=== PATIENT | male | born 2000 | race Caucasian/White ===

== ENCOUNTER 2023-06-07 13:14 | Emergency (ER) | payer OTHER, SELFPAY ==
[2023-06-07 13:17] VITALS: BP 141/94; PULSE 90; RESP 16; TEMP 36.6; O2SAT 99; BMI 30.8
--- NOTE | 2023-06-07 13:21 | ED.WOUNDLAC1 ---
HPI - Wound/Laceration General Chief Complaint: Wound/Laceration Stated Complaint: LACERATION LEFT RING FINGER Time Seen by Provider: 06/07/23 13:15 History of Present Illness HPI narrative: 23-year-old male presents for laceration to his left ring finger. This was sustained at work with a sharp knife. There was some bleeding which was controlled with pressure. Last tetanus shot was more than ten years ago he believes. No other injury was sustained. Related Data Home Medications Medication Instructions Recorded Confirmed No Known Home Medications 06/07/23 06/07/23 Allergies Allergy/AdvReac Type Severity Reaction Status Date / Time No Known Drug Allergies Allergy Verified 06/07/23 13:17 Review of Systems ROS Narrative A ten point review of systems is negative except as noted above. PFSH PFSH Social History Smoking status: Never smoker Exam Narrative Exam Narrative: Nurses note and vital signs reviewed and patient is not hypoxic. General: The patient appears well and in no apparent distress. Patient is resting comfortably on cart. Skin: Warm, dry, no pallor noted. There is no rash noted. Head: Normocephalic, atraumatic Eye: Normal conjunctiva, no drainage Ears, Nose, Mouth, and Throat: oral mucosa is moist. Nares patent. Cardiovascular: Regular Rate and Rhythm Respiratory: Patient is in no distress, no accessory muscle use Back: non-tender GI: nontender Musculoskeletal: left ring finger distally has 1 cm laceration with a small amount of nonpulsatile bleeding easily controlled with pressure. Nail and nailbed are unaffected. Neurological: A&O, normal speech Psychiatric: Cooperative Constitutional Vital Signs, click to edit/add: Last Vital Signs Temp 97.9 F 06/07/23 13:17 Pulse 90 06/07/23 13:17 Resp 16 06/07/23 13:17 BP 141/94 H 06/07/23 13:17 Pulse Ox 99 06/07/23 13:17 O2 Del Method Room Air 06/07/23 13:17 Course Vital Signs Vital signs: Vital Signs Temperature 97.9 F 06/07/23 13:17 Pulse Rate 90 06/07/23 13:17 Respiratory Rate 16 06/07/23 13:17 Blood Pressure 141/94 H 06/07/23 13:17 Pulse Oximetry 99 06/07/23 13:17 Oxygen Delivery Method Room Air 12/23/23 13:17 Temperature 97.9 F 06/07/23 13:17 Pulse Rate 90 06/07/23 13:17 Respiratory Rate 16 06/07/23 13:17 Blood Pressure 141/94 H 06/07/23 13:17 Pulse Oximetry 99 06/07/23 13:17 Oxygen Delivery Method Room Air 06/07/23 13:17 MDM - Wound/Laceration MDM Narrative Medical decision making narrative: wound has been closed, sutures are to be removed in 7-8 days. Tubegauz dressing applied. Tetanus updated today. Treeatment diagnosis and follow-up were discussed with the patient. Differential Diagnosis Differential diagnosis: Likely laceration and avulsion of skin Discharge Plan Discharge Chief Complaint: Wound/Laceration Clinical Impression: Laceration Patient Disposition: Home, Self-Care Time of Disposition Decision: 13:51 Prescriptions / Home Meds: No Action No Known Home Medications Instructions: Finger Laceration (ED) Additional Instructions: sutures to be removed in a week to ten days. Stand Alone Forms: Portal Instructions Referrals: JESIKA WAGNER [Primary Care Provider] - 1 week Procedures ED Procedure Instructions Procedures Procedures: the following procedure was performed by me. Finger block applied with one percent lidocaine without epinephrine resulting in complete skin anesthesia. The area was prepped with Betadine ?3 and draped sterilely and explored for foreign bodies in them were found. The wound was then closed with two 5-0 Ethilon sutures resulting in good skin reapproximation and no complications. He tolerated the procedure well.
[2023-06-07] MEDS: ADACEL DIPH,PERTUSS(ACELL),TET VAC/PF 0.5 ML ADULT SYRINGE IM (13:59)
[2023-06-07] MEDS: LIDOCAINE HCL 1% 100 MG/10 ML MDV INJ (13:59)
[2023-06-07 14:04] VITALS: BP 138/88; PULSE 89; RESP 18; O2SAT 98
== END 2023-06-07 14:36 | disposition home or self-care (01) ==
PROVIDERS: Emergency Provider Emergency Medicine; PCP Nurse Practitioner Family
DX: S61.215A Laceration without foreign body of left ring finger without damage to nail, initial encounter (principal); Z23 Encounter for immunization; W26.0XXA Contact with knife, initial encounter
CPT/HCPCS: 12001; 90471; 90715; 99284

== ENCOUNTER 2024-04-27 06:05 | Emergency (ER) | payer OTHER, SELFPAY ==
--- OUTSIDE RECORDS SUMMARY | 2024-04-27 06:09 | XMS_ITS | CCD ---
Author Organization [facility] Care Team Providers Care Hearing Aid Dispenser Name Role Phone PAY, DR RIBERA Attending Unavailable STACI, DR BRADFORD Beltran Consulting Unavailable PAY, DR RIBERA Admitting Unavailable JESIKA KEVIN Primary Care Unavailable PAY, DR RIBERA Consulting Unavailable JESIKA KEVIN Attending Unavailable JESIKA KEVIN Consulting Unavailable [facility], DR LAM Primary Care Unavailable JESIKA KEVIN Admitting Unavailable JESIKA KEVIN Attending Unavailable JESIKA KEVIN Consulting Unavailable HERBERTH, JESIKA Primary Care Unavailable HERBERTH, JESIKA Admitting Unavailable Ila Hebert Unavailable Medications Current Medications Medication Drug Class(es) Dates Sig (Normalized) Sig (Original) ondansetron 4 mg oral tablet (1 source) Serotonin-3 Receptor Antagonist Start: 03-19-2021 take 1 tablet by mouth every eight hours as needed Zofran ODT 4 MG 1 tablet on the tongue and allow to dissolve Orally every 8 hrs as needed for 4 days Mar, Active Problems Active Problems Problem Classification Problem Date Documented Date Episodic/Chronic Conduction disorders (1 source) Atrioventricular block, first degree; Translations: [ATRIOVENTRICULAR BLOCK FIRST DEGREE] Onset: 07-10-2021 Chronic Headache; including migraine (1 source) Headache; including migraine; Translations: [HEADACHE UNSPECIFIED] Onset: 03-24-2021 Other upper respiratory disease (1 source) Epistaxis; Translations: [EPISTAXIS] Onset: 07-10-2021 Episodic Syncope (4 sources) Syncope and collapse; Translations: [SYNCOPE AND COLLAPSE] Onset: 07-06-2021 Episodic Unclassified (3 sources) CONTACT W/AND (SUSP) EXPOS COVID-19; Translations: [CONTACT W/AND (SUSP) EXPOS COVID-19] Onset: 03-24-2021 Past or Other Problems Problem Classification Problem Date Documented Date Episodic/Chronic Fever of unknown origin (1 source) Fever, unspecified; Translations: [FEVER UNSPECIFIED] Onset: 03-24-2021 Episodic Immunizations and screening for infectious disease (1 source) Contact with and (suspected) exposure to other viral communicable diseases; Translations: [Contact with and (suspected) exposure to other viral communicable diseases Z20.828] Onset: 03-19-2021 Resolved: 03-19-2021 Episodic Other upper respiratory infections (1 source) Streptococcal sore throat; Translations: [Strep pharyngitis] Episodic Residual codes; unclassified (1 source) Pain, unspecified; Translations: [PAIN UNSPECIFIED] Onset: 03-24-2021 Episodic Unclassified (1 source) CONTACT W/AND (SUSP) EXPOS COVID-19; Translations: [CONTACT W/AND (SUSP) EXPOS COVID-19] Onset: 03-20-2021 Results Test Name Value Interpretation Reference Range Facility CARDIAC ABBY ADMITon 022 CK [Catalytic activity/Vol] 55 U/L Normal 55-170 [facility] Comment on above: Performed By: #### H STROPN, CMADM, CMP #### [facility] [address] [place] [address] Dr. Akilah Irwin CK.MB [Mass/Vol] ng/mL Normal <=2.[address] [facility] Comment on above: Performed By: #### H STROPN, CMADM, CMP #### [facility] [address] [place] [address] Dr. Akilah Irwin CHRISTOPHER 27.0 ng/mL Normal <=121.0 [facility] Comment on above: Performed By: #### H STROPN, CMADM, CMP #### [facility] [address] [place] [address] Dr. Akilah Irwin CBC AUTO DIFFon 07-06-2021 BASO # 0.0 103/ul Normal 0.0-0.1 [facility] Comment on above: Performed By: #### C BC #### [facility] [address] [place] [address] Dr. Akilah Irwin Basophils/100 WBC (Bld) 0.4 % Normal 0.2-2.0 [facility] Comment on above: Performed By: #### C BC #### [facility] [address] [place] [address] Dr. Akilah Irwin EO # 0.2 103/ul Normal 0.0-0.7 [facility] Comment on above: Performed By: #### C BC #### [facility] [address] [place] [address] Dr. Akilah Irwin Eosinophils/100 WBC (Bld) 1.7 % Normal 0.9-7.0 [facility] Comment on above: Performed By: #### C BC #### [facility] [address] [place] [address] Dr. Akilah Irwin Erythrocyte distribution width (RBC) [Ratio] 13.2 % Normal 11.0-15.0 [facility] Comment on above: Performed By: #### C BC #### [facility] [address] [place] [address] Dr. Akilah Irwin Hematocrit (Bld) [Volume fraction] 40.0 % Critically low 42.0-54.0 [facility] Comment on above: Performed By: #### C BC #### [facility] [address] [place] [address] Dr. Akilah Irwin Hemoglobin (Bld) [Mass/Vol] 12.9 g/dL Critically low 14.0-18.0 [facility] Comment on above: Performed By: #### C BC #### [facility] [address] [place] [address] Dr. Akilah Irwin IG # 0.02 10e3/ul Normal 0.00-0.03 [facility] Comment on above: Performed By: #### C BC #### [facility] [address] [place] [address] Dr. Akilah Irwin IG % 0.2 % Normal 0.0-0.5 [facility] Comment on above: Performed By: #### C BC #### [facility] [address] [place] [address] Dr. Akilah Irwin LYMPH # 3.1 103/ul Normal 1.2-3.8 [facility] Comment on above: Performed By: #### C BC #### [facility] [address] [place] [address] Dr. Akilah Irwin Lymphocytes/100 WBC (Bld) 34.4 % Normal 20.5-60.0 [facility] Comment on above: Performed By: #### C BC #### [facility] [address] [place] [address] Dr. Akilah Irwin MANUAL DIFF REQ NO Normal [facility] Comment on above: Performed By: #### C BC #### [facility] [address] [place] [address] Dr. Akilah Irwin MCH (RBC) [Entitic mass] 25.4 pg Critically low 25.9-34.0 [facility] Comment on above: Performed By: #### C BC #### [facility] [address] [place] [address] Dr. Akilah Irwin MCHC (RBC) [Mass/Vol] 32.3 g/dL Normal 29.9-35.2 [facility] Comment on above: Performed By: #### C BC #### [facility] [address] [place] [address] Dr. Akilah Irwin MCV (RBC) [Entitic vol] 78.9 fL Critically low 80.0-94.0 [facility] Comment on above: Performed By: #### C BC #### [facility] [address] [place] [address] Dr. Akilah Irwin MONO # 0.6 103/ul Normal 0.3-0.8 [facility] Comment on above: Performed By: #### C BC #### [facility] [address] [place] [address] Dr. Akilah Irwin Monocytes/100 WBC (Bld) 6.2 % Normal 1.7-12.0 [facility] Comment on above: Performed By: #### C BC #### [facility] [address] [place] [address] Dr. Akilah Irwin NEUT # 5.1 103/ul Normal 1.4-6.5 [facility] Comment on above: Performed By: #### C BC #### [facility] [address] [place] [address] Dr. Akilah Irwin Neutrophils/100 WBC (Bld) 57.1 % Normal 43.0-75.0 [facility] Comment on above: Performed By: #### C BC #### [facility] [address] [place] [address] Dr. Akilah Irwin Platelet mean volume (Bld) [Entitic vol] 9.3 fL Critically low 9.5-13.5 [facility] Comment on above: Performed By: #### C BC #### [facility] [address] [address] [address] Akilah Irwin PLT 246 103/ul Normal 150-450 [facility] Comment on above: Performed By: #### C BC #### [facility] [address] [place] [address] Dr. Akilah Irwin RBC 5.07 106/ul Normal 4.70-6.10 [facility] Comment on above: Performed By: #### C BC #### [facility] [address] [place] [address] Dr. Akilah Irwin WBC 9.0 103/ul Normal 4.0-11.0 [facility] Comment on above: Performed By: #### C BC #### [facility] [address] [place] [address] Dr. Akilah Irwin PROF 14(COMP METB)on 022 Albumin [Mass/Vol] 4.1 g/dL Normal 3.5-5.0 [facility] Comment on above: Performed By: #### H OSMAR CMADM, CMP #### [facility] [address] [place] [address] Dr. Akilah Irwin Albumin/Globulin [Mass ratio] 1.1 {ratio} Normal [facility] Comment on above: Performed By: #### H OSMAR CMADM, CMP #### [facility] [address] [place] [address] Dr. Akilah Irwin ALP [Catalytic activity/Vol] 119 U/L Normal 38-126 [facility] Comment on above: Performed By: #### H OSMAR CMADM, CMP #### [facility] [address] [place] [address] Dr. Akilah Irwin ALT [Catalytic activity/Vol] 48 U/L Normal 21-72 [facility] Comment on above: Performed By: #### H STROPN, CMADM, CMP #### [facility] [address] [address] [address] Akilah Irwin Anion gap [Moles/Vol] 11.5 mmol/L Normal [facility] Comment on above: Performed By: #### H STROPN, CMADM, CMP #### [facility] [address] [address] [address] Akilah Irwin AST [Catalytic activity/Vol] 21 U/L Normal 17-59 [facility] Comment on above: Performed By: #### H STROPN, CMADM, CMP #### [facility] [address] [place] [address] Dr. Akilah Irwin Bilirubin [Mass/Vol] 0.2 mg/dL Normal 0.2-1.3 [facility] Comment on above: Performed By: #### H STROPN, CMADM, CMP #### [facility] [address] [place] [address] Dr. Akilah Irwin Calcium [Mass/Vol] 9.0 mg/dL Normal 8.4-10.2 [facility] Comment on above: Performed By: #### H STROPN, CMADM, CMP #### [facility] [address] [place] [address] Dr. Akilah Irwin Chloride [Moles/Vol] 102 mmol/L Normal 98-107 [facility] Comment on above: Performed By: #### H STROPN, CMADM, CMP #### [facility] [address] [place] [address] Dr. Akilah Irwin CO2 [Moles/Vol] 29.2 mmol/L Normal 22.0-30.[address] [facility] Comment on above: Performed By: #### H STROPN, CMADM, CMP #### [facility] [address] [address] [address] Akilah Irwin Creatinine [Mass/Vol] 0.80 mg/dL Normal 0.66-1.25 [facility] Comment on above: Performed By: #### H STROPN, CMADM, CMP #### [facility] [address] [address] [address] Akilah Irwin EGFR-AF BURKINAN >60 Normal >=[address] [facility] Comment on above: Performed By: #### H STROPN, CMADM, CMP #### [facility] [address] [address] [address] Akilah Irwin EGFR-NON AF BURKINAN >60 Normal >=60 [facility] Comment on above: Performed By: #### H STROPN, CMADM, CMP #### [facility] [address] [address] [address] Akilah Irwin Globulin (S) [Mass/Vol] 3.9 g/dL Normal [facility] Comment on above: Performed By: #### H STROPN, CMADM, CMP #### [facility] [address] [address] [address] Akilah Irwin Glucose [Mass/Vol] 157 mg/dL Critically high 74-106 [facility] Comment on above: Performed By: #### H STROPN, CMADM, CMP #### [facility] [address] [address] [address] Akilah Irwin Potassium [Moles/Vol] 3.7 mmol/L Normal 3.4-5.0 [facility] Comment on above: Performed By: #### H STROPN, CMADM, CMP #### [facility] [address] [address] [address] Akilah Irwin Protein [Mass/Vol] 8.0 g/dL Normal 6.1-8.2 [facility] Comment on above: Performed By: #### H STROPN, CMADM, CMP #### [facility] [address] [address] [address] Akilah Irwin Sodium [Moles/Vol] 139 mmol/L Normal 137-145 [facility] Comment on above: Performed By: #### H STROPN, CMADM, CMP #### [facility] [address] [address] [address] Akilah Irwin Urea nitrogen [Mass/Vol] 13.0 mg/dL Normal 6.4-19.3 [facility] Comment on above: Performed By: #### H QUIN PRASAD, CMP #### [facility] [address] [address] [address] Akilah Irwin Urea nitrogen/Creatinine [Mass ratio] 16.2 mg/mg Normal [facility] Comment on above: Performed By: #### H QUIN PRASAD, CMP #### [facility] [address] [address] [address] Akilah Irwin TROPONIN, HIGH SENSITIVITYon 07-06-2021 HSTROP 4.2 pg/mL Normal 4.0-42.2 [facility] Comment on above: Result Comment: CUT- OFF POINTS HAVE BEEN ESTABLISHED BASED ON THE FOURTH UNIVERSAL DEFINITIONS OF MYOCARDIAL INFARCTION. THE UPPER REFERENCE LIMIT (URL) OF TROPONIN, DEFINED THE 99TH PERCENTILE OF cTnI DISTRIBUTION IN A REFERENCE POPULATION, HAS BEEN CONFIRMED THE DECISION THRESHOLD FOR CO DIAGNOSIS. Performed By: #### H QUIN PRASAD, CMP #### [facility] [address] [address] [address] Akilah Irwin XR CHEST 1 Von 07-06-2021 XR CHEST 1 V EXAMINATION: XR CHEST 1 V HISTORY: SHORTNESS OF BREATH COMPARISON: No relevant comparison available. FINDINGS: LUNGS: No significant pulmonary parenchymal abnormalities. VASCULATURE: No increased pulmonary vasculature. PLEURA: No pneumothorax, effusion, or pleural thickening. CARDIAC: No cardiomegaly or cardiac silhouette abnormality. MEDIASTINUM: No visible mass or adenopathy. BONES: No fracture or visible bone lesion. OTHER: Negative. IMPRESSION: 1. Normal examination. Electronically authenticated by: BRADFORD SMALL Date: 2021-07-06 12:29 Normal [facility] Covid-19 PCR (CVDTBH)on SARS-CoV-2 (COVID-19) RNA ELEANOR+probe Ql (Unsp spec) Not detected Normal NOT DETECTED [facility] Comment on above: Result Comment: This test is not yet approved or cleared by the [place] FDA. When there are no FDA-approved or cleared tests available, and other criteria are met, FDA can make tests available under an emergency access mechanism called an Emergency Use Authorization (EUA). The EUA for this test is supported by the [place] of Health and Human Service's (HHS's) declaration that circumstances exist to justify the emergency use of in vitro diagnostics for the detection and/or diagnosis of the virus that causes COVID-19. This EUA will remain in effect (meaning this test can be used) for the duration of the COVID-19 declaration justifying emergency of IVDs, unless it is terminated or revoked by FDA (after which the test may no longer be used). When diagnostic testing is negative, the possibility of a false negative should be considered in the context of a patient's recent exposures and the presence of clinical signs and symptoms consistent with SARS-CoV-2. Performed By: #### C VDTBH #### [facility] [address] [place] [address] [address] Akilah Irwin COVID Quick Testingon 2020 Result Negative [facility] Covid-19 PCR ([facility])on 09-15 Sample Type Test performed using RT-PCR from a nasopharyngeal collected specimen. Normal [facility] Comment on above: Performed By: #### C VDTBH #### [facility] [address] [place] [address] Theron Peter SARS-CoV-2 (COVID-19) RNA ELEANOR+probe Ql (Unsp spec) Not detected Normal NOT DETECTED [facility] Comment on above: Result Comment: This test is not yet approved or cleared by the [place] FDA. When there are no FDA-approved or cleared tests available, and other criteria are met, FDA can make tests available under an emergency access mechanism called an Emergency Use Authorization (EUA). The EUA for this test is supported by the [place] of Health and Human Service's (HHS's) declaration that circumstances exist to justify the emergency use of in vitro diagnostics for the detection and/or diagnosis of the virus that causes COVID-19. This EUA will remain in effect (meaning this test can be used) for the duration of the COVID-19 declaration justifying emergency of IVDs, unless it is terminated or revoked by FDA (after which the test may no longer be used). When diagnostic testing is negative, the possibility of a false negative should be considered in the context of a patient's recent exposures and the presence of clinical signs and symptoms consistent with SARS-CoV-2. Performed By: #### C [facility] #### [facility] [address] [place] [address] Theron Peter Vital Signs Date Time Vital Sign Value Performing Clinician Facility 03-19-2021 14:45-0400 Body height 175.26 cm Ila Hebert Other [facility] 03-19-2021 14:45-0400 Body mass index (BMI) [Ratio] 29.53 kg/m2 Ila Hebert Other [facility] 03-19-2021 14:45-0400 Body temperature 98.9 [degF] Ila Hebert Other [facility] 03-19-2021 14:45-0400 Body weight 90.72 kg Ila Anup Other [facility] 03-19-2021 14:45-0400 SaO2% (BldA) [Mass fraction] 95 % Ila Anup Other [facility] Other Encounters Encounter Date Encounter Type Care Provider Facility Start: 07-06-2021 End: 07-06-[address] BACILIO ROYAL Facility:[facility] Start: 03-20-2021 End: 03-20-2021 ambulatory JESIKA KEVIN Facility:[facility] Start: 03-19-2021 Office outpatient vi sit 15 minutes Ila Hbeert [facility] Start: 10-10-2020 End: 10-10-2020 ambulatory JESIKA KEVIN Facility:[facility] Payers Date Payer Category Payer Unknown [id number] [id number] [id number] 2002 Unknown [id number] [id number] 2002 Unknown [id number] [id number] [id number] 1959 Unknown [id number] Social History Date Type Detail Facility Sex Assigned At [facility] Evaluation note 03-19-2021 Note Date & Type Note Facility 03-19-2021 Evaluation note Encounter Date Diagnosis Assessment Notes Mar, Contact with and (suspected) exposure to other viral communicable diseases (ICD-10 - Z20.828) Today test was performed in office. Results are currently negative. That does not mean that you will not develop COVID or do not currently have a low viral count of COVID. The rapid test works best if symptoms have been over 72 hours and the results can vary if you are asymptomatic There is a higher chance of false negative results to occur if testing is performed too soon. It is recommended that even if results are negative and you have been exposed to someone that has COVID that you follow current CDC recommendations . These can be found at CDC.GOV. Follow up with primary care provider if symptoms persist or do not improve Mar, Other Additional time spent conducting pre-visit phone call, screening for symptoms, instructions on social distancing, application and removal of PPE, and cleaning of examination room, equipment and supplies was preformed. Patient education given for testing methodology and results. Patient care instructions given in writting by [facility] document. [facility] Other History general Narrative - Reported Note Date & Type Note Facility History general Narrative - Reported Type Medical History migraine headache Surgical History PET placement [facility] Other Summary Purpose Family History No Family History Records Found Advance Directives No Advanced Directives Records Found Additional Source Comments (unrecognized sect ion and content) No Status Records Found INFORMATION SOURCE (unrecogn ized section and content) DATE CREATED AUTHOR 07/10/2021 The Gianluca yang REASON FOR VISIT (unrecogniz ed section and content) #20 [place], DIARRHEA N/V , BODY ACHES, H/A, COVID Provider Visit FOR RECORDS PERTAINING TO PATIENTS WHO ARE OR HAVE BEEN ENROLLED IN A CHEMICAL DEPENDENCY/SUBSTANCEABUSE PROGRAM, SOME INFORMATION MAY BE OMITTED. This clinical summary was aggregated from multiple sources. Caution should be exercised in using it in the provision of clinical care. This summary normalizes information from multiple sources, and as a consequence, information in this document may materially change the coding, format and clinical context of patient data. In addition, data may be omitted in some cases. CLINICAL DECISIONS SHOULD BE BASED ON THE PRIMARY CLINICAL RECORDS. [facility] [employer] [facility]. provides no warranty or guarantee of the accuracy or completeness of information in this document.
[2024-04-27 06:15] VITALS: BP 148/93; PULSE 84; TEMP 36.8; O2SAT 98; BMI 33.0
--- NOTE | 2024-04-27 06:29 | CT_ITS ---
[address] [address] Patient Name: CARSON VILLEGSA MRN: [id number] date: 2000 Sex: M Assigned Patient Location: ED.MAIN Current Patient Location: Accession/Order Number: [id number] Exam Date: 04/27/2024 06:51 Report Date: 04/27/2024 07:16 At the request of: KOURTNEY MARKER Procedure: CT abdomen pelvis w con EXAMINATION: CT abdomen pelvis w con HISTORY: periumbilical abd pain COMPARISON: No relevant comparison available. TECHNIQUE: CT images were created with IV contrast. Axial, Coronal, and Sagittal images. Dose reduction techniques were achieved by using automated exposure control and/or adjustment of mA and/or kV according to patient size and/or use of iterative reconstruction technique. FINDINGS: LUNG BASES: No visible pulmonary or pleural disease. LIVER: Hypodensity at the falciform ligament likely focal fatty infiltration BILIARY: No visible dilatation or calcification. PANCREAS: No lesion, fluid collection, ductal dilatation, or atrophy. SPLEEN: No enlargement or focal lesion. ADRENALS: No mass or enlargement. KIDNEYS: No mass, obstruction, or calcification. BOWEL/MESENTERY: There is fluid distention of central small bowel loops with some mild inflammatory changes and hyperemia, the loops measure up to 2.7 cm. There is collapse of distal small bowel loops. The appendix is normal. AORTA/VASCULAR: No aneurysm or dissection. RETROPERITONEUM: No mass or adenopathy. LYMPH NODES: Increased number of normal and mildly enlarged mesenteric lymph nodes URINARY BLADDER: No visible focal wall thickening, lesion, or calculus. PELVIC ORGANS: No visible mass. Pelvic organs appropriate for patient age. ABDOMINAL WALL: No mass or hernia. BONES: No bony lesion or fracture. OTHER: Small amount of ascites CT/CT abdomen pelvis w con IMPRESSION: Fluid-filled asymmetrically distended proximal small bowel loops with hyperemia, I favor enteritis over a developing small bowel obstruction Electronically authenticated by: JOSE ELIAS KABA Date: 04/27/2024 07:16
--- NOTE | 2024-04-27 06:39 | ED.ABDPAIN1 ---
HPI - Abdominal Pain General Chief Complaint: Abdominal Pain Stated Complaint: ABD PAIN Time Seen by Provider: 04/27/24 06:21 Source: patient Mode of arrival: walk-in Limitations: no limitations History of Present Illness HPI narrative: 24-year-old male with no significant medical history who occasionally gets migraine headaches presents for evaluation of periumbilical abdominal pain with nausea vomiting and diarrhea. The patient last had a ham and cheese sub from [facility] around 11 PM. Approximately 1 hour later he became nauseated and vomited. He subsequently developed diarrhea. Since that time he has had moderate to severe periumbilical pain. He has not had any fevers or chills. He denies any flank pain. He has no chest pain or shortness of breath. Related Data Home Medications ?Medication ?Instructions ?Recorded ?Confirmed No Known Home Medications 06/07/23 04/27/24 Allergies Allergy/AdvReac Type Severity Reaction Status Date / Time No Known Drug Allergies Allergy Verified 04/27/24 06:15 Review of Systems ROS Status of ROS 10 or more systems reviewed and unremarkable except as noted in history and below [facility] Surgical History (Updated 04/27/24 @ 06:24 by Mio Lema RN) Hx of tympanostomy tubes ?Z98.890 - Other specified postprocedural states (ICD-10) Social History Smoking status: Never smoker Little interest or pleasure in doing things: not at all Feeling down, depressed, or hopeless: not at all Exam Narrative Exam Narrative: Vital signs and Nursing Notes reviewed: Patient is afebrile with a normal pulse, blood pressure is elevated 148/93, he is not hypoxic with pulse ox of 98% on room air General: Awake, alert, oriented, pale uncomfortable appearing male, no respiratory distress, no active vomiting HEENT: Normocephalic atraumatic, mucous membranes are moist and pink, eyes are clear, normal conjunctiva, vision is grossly intact, posterior pharynx is normal in appearance. Chest: Lungs are clear to auscultation with good air entry, there is no wheezing rhonchi or rales appreciated no accessory muscle use, patient is speaking in complete sentences-no chest wall tenderness to palpation CVS: Regular rate and rhythm S1-S2, no murmurs rubs or gallops, pulses are brisk and equal bilaterally ABD: Patient has tenderness in the epigastrium and periumbilical region. Negative Rovsing sign, bowel sounds are mildly hyperactive, there is no tenderness in the right lower quadrant. Obturator testing refers pain into the periumbilical region. No CVA tenderness appreciated Extremities: Moving all extremities, no lower extremity tenderness or swelling noted, negative Homans' sign, pulses are brisk and equal bilaterally Skin: Normal in appearance without rash,pallor, petechiae or purpura Neuro: No focal deficits Constitutional Vital Signs, click to edit/add: Last Vital Signs Temp 98.3 F 04/27/24 06:15 Pulse 84 04/27/24 06:15 Resp 18 04/27/24 06:15 BP 148/93 H 04/27/24 06:15 Pulse Ox 98 04/27/24 06:15 O2 Del Method Room Air 04/27/24 06:15 Course Vital Signs Vital signs: Vital Signs Temperature 98.3 F 04/27/24 06:15 Pulse Rate 84 04/27/24 06:15 Respiratory Rate 18 04/27/24 06:15 Blood Pressure 148/93 H 04/27/24 06:15 Pulse Oximetry 98 04/27/24 06:15 Oxygen Delivery Method Room Air 04/27/24 06:15 Temperature 98.3 F 04/27/24 06:15 Pulse Rate 84 04/27/24 06:15 Respiratory Rate 18 04/27/24 06:15 Blood Pressure 148/93 H 04/27/24 06:15 Pulse Oximetry 98 04/27/24 06:15 Oxygen Delivery Method Room Air 04/27/24 06:15 MDM - Abdominal Pain MDM Narrative Medical decision making narrative: This 24-year-old male presents for evaluation of periumbilical pain associated with nausea vomiting and diarrhea that started in the middle of the night after eating a ham and cheese sub-. He is tender in the epigastrium and periumbilical region. He also has pain referred to his stomach with movement of the right leg. An IV was placed and routine labs were ordered. He was medicated with Zofran, Toradol and Pepcid. He will be signed out to the incoming physician at 7 AM. Discharge Plan Discharge Chief Complaint: Abdominal Pain Clinical Impression: Abdominal pain Patient Disposition: Still a Patient Prescriptions / Home Meds: No Action No Known Home Medications Print Language: Romansh Referrals: JESIKA WAGNER [Primary Care Provider] - 1 week
[2024-04-27 06:46] LABS: Basophils Absolute Auto 0.1 10^3/uL (0.0-0.1); Basophils Percent Auto 0.3 % (0.2-2.0); Eosinophils Percent Auto 0.2 % (0.9-7.0); Hematocrit 44.9 % (42.0-54.0); Hemoglobin 14.7 g/dL (14.0-18.0); Immature Granulocytes Abs Auto 0.06 10^3/uL (0.00-0.03); Immature Granulocytes Pct Auto 0.3 % (0.0-0.5); Lymphocytes Absolute Auto 2.1 10^3/uL (1.2-3.8); Lymphocytes Percent Auto 11.1 % (20.5-60.0); Mean Corpuscular HGB Conc 32.7 g/dL (29.9-35.2); Mean Corpuscular Hemoglobin 25.5 pg (25.9-34.0); Mean Platelet Volume 9.4 fL (9.5-13.5); Monocytes Percent Auto 5.5 % (1.7-12.0); Neutrophils Absolute Auto 15.2 10^3/uL (1.4-6.5); Neutrophils Percent Auto 82.6 % (43.0-75.0); Platelet Count 346 10^3/uL (150-450); Red Blood Count 5.76 10^6/uL (4.70-6.10); Red Cell Distribution Width 13.4 % (11.0-15.0); White Blood Count 18.4 10^3/uL (4.0-11.0)
[2024-04-27] MEDS: KETOROLAC TROMETHAMINE 30 MG/ML VIAL IVP (07:00)
[2024-04-27] MEDS: ONDANSETRON PF 4 MG/2 ML VIAL IV (07:00)
[2024-04-27] MEDS: FAMOTIDINE/PF 20 MG/2 ML VIAL IV (07:00)
[2024-04-27 07:04] LABS: Alanine Aminotransferase 42 U/L (16-63); Albumin Globulin Ratio 1.1; Albumin Level 4.4 g/dL (3.4-5.0); Alkaline Phosphatase 108 U/L (46-116); Anion Gap 17.9; Aspartate Amino Transferase 19 U/L (15-37); BUN Creatinine Ratio 16.9; Bilirubin Total 0.4 mg/dL (0.2-1.0); Calcium 9.8 mg/dL (8.5-10.1); Carbon Dioxide 27.2 mmol/L (21.0-32.0); Chloride 103 mmol/L (98-107); Estimated GFR (African America >60 (>=60 mL/min/1.73m^2); Estimated GFR (Non-African Ame >60 (>=60 mL/min/1.73m^2); Glucose 112 mg/dL (74-106); Potassium 4.1 mmol/L (3.5-5.1); Sodium 144 mmol/L (136-145); Total Protein 8.4 g/dL (6.4-8.2)
[2024-04-27 07:06] VITALS: BP 150/95; PULSE 82; O2SAT 94
[2024-04-27 07:38] VITALS: BP 120/66
== END 2024-04-27 07:40 | disposition home or self-care (01) ==
PROVIDERS: Emergency Provider Emergency Medicine; PCP Nurse Practitioner Family
DX: R10.9 Unspecified abdominal pain (principal); K52.9 Noninfective gastroenteritis and colitis, unspecified
CPT/HCPCS: 36415; 74177; 80053; 83690; 85025; 96374; 96375; 99284; J1885; J2405; Q9967